=== PATIENT | male | born 1985 | race Two or more races ===

== ENCOUNTER 2018-02-02 19:26 | Emergency (ER) | payer OTHER | END 2018-02-02 21:45 | disposition home or self-care (01) | LOC: ER 19:26 | DX: H60.331 Swimmer's ear, right ear (principal) | CPT/HCPCS: 99283 ==

== ENCOUNTER 2021-06-13 18:48 | Emergency (ER) | payer SELFPAY ==
[~2021-06-13] VITALS: Ht 177.8 cm; Wt 100.0 kg
[~2021-06-13 18:48] MED LIST: CIPR500T94 PO; HYDR-3164 PO; METR500T PO; OFLO5DRO7 RIGHTEYE; ONDA4TAB10 SL
[2021-06-13] MEDS ORDERED: ONDANSETRON ODT 4 MG TAB.RAPDIS. PO ONE (20:00)
[2021-06-13] MEDS ORDERED: ONDANSETRON ODT 4 MG TAB.RAPDIS. ONE (20:09)
[2021-06-13 20:20] VITALS: BP 124/60
--- NOTE | 2021-06-13 21:06 | PHYS DOC ---
Past Medical History Past Medical History: No Pertinent History Past Surgical History: No Surgical History Smoking Status: Current Some Day Smoker Alcohol Use: Heavy Drug Use: None General Adult EDM: Chief Complaint: OVERDOSE HPI: HPI: Patient is a 35 year old male with history of polysubstance abuse who presents with EMS after being found unresponsive and having pinpoint pupils. Initially had assisted ventilations and was given 0.2 mg of Narcan with an increase level of consciousness. Patient denies opiate use today, but does endorse a large amount of alcohol intake and marijuana use. States that he felt okay prior, but was upset about a car breakdown and so was "drinking to pass out." Review of Systems: Review of Systems: Constitutional: Denies fever or chills. [] Eyes: Denies change in visual acuity. [] HENT: Denies nasal congestion or sore throat. [] Respiratory: Denies cough or shortness of breath. [] Cardiovascular: Denies chest pain or edema. [] GI: Denies abdominal pain, nausea, vomiting, bloody stools or diarrhea. [] : Denies dysuria. [] Musculoskeletal: Denies back pain or joint pain. [] Integument: Denies rash. [] Neurologic: Denies headache, focal weakness or sensory changes. [] Endocrine: Denies polyuria or polydipsia. [] Lymphatic: Denies swollen glands. [] Psychiatric: Denies depression or anxiety. [] Heart Score: C/O Chest Pain: No Risk Factors: Risk Factors: DM, Current or recent (<one month) smoker, HTN, HLP, family history of CAD, obesity. Risk Scores: Score 0 - 3: 2.5% MACE over next 6 weeks - Discharge Home Score 4 - 6: 20.3% MACE over next 6 weeks - Admit for Clinical Observation Score 7 - 10: 72.7% MACE over next 6 weeks - Early Invasive Strategies Current Medications: Current Medications Medications (Trade) Dose Ordered Sig/Pasha Start Time Stop Time Status Last Admin Dose Admin Ondansetron HCl (Zofran Odt) 4 mg 1X ONCE 06/13/21 20:00 06/13/21 20:17 DC 06/13/21 20:12 4 MG Allergies: Allergies: Allergies Coded Allergies Type Severity Reaction Last Updated Verified No Known Drug Allergies 04/09/16 No Physical Exam: PE: Constitutional: Well-developed, well-nourished HENT: Normocephalic, atraumatic, pupils 3-4 mm, equal, reactive. Perioral cyanosis noted. Neck: Normal range of motion, no tenderness, supple, no stridor. [] Cardiovascular: Tachycardic, regular. Lungs & Thorax: Bilateral crackles in all lung hendrix. Initially satting 70% on room air. Recovered with 6 L/min nasal cannula to 95%. No chest wall tenderness. Abdomen: Bowel sounds normal, soft, no tenderness, no masses, no pulsatile masses. [] Skin: Warm, dry, no erythema, no rash. [] Back: No tenderness, no CVA tenderness. [] Extremities: No tenderness, no cyanosis, no clubbing, ROM intact, no edema. [] Neurologic: Alert and oriented X 3, normal motor function, normal sensory function, no focal deficits noted. [] No slurred speech. Was able to have an in-depth conversation, and discussed risks and benefits. Was able to repeat information back. Psychologic: Affect normal, judgement normal, mood normal. [] Current Patient Data: Vital Signs: Vital Signs Date Time Temp Pulse Resp B/P (MAP) Pulse Ox O2 Delivery O2 Flow Rate FiO2 06/13/21 18:50 125 16 162/88 (112) 91 Room Air EKG: EKG: Sinus rhythm. Rate 136. Left axis deviation. No ST elevations or depressions. QTc 421. MI 142. [] Radiology/Procedures: Radiology/Procedures: [] Course & Med Decision Making: Course & Med Decision Making Pertinent Labs and Imaging studies reviewed. (See chart for details) Patient is a 35-year-old male who admits to polysubstance abuse who presents with EMS after receiving 0.2 mg of Narcan for unresponsiveness and pinpoint pupils. Per EMS responded well to Narcan. Patient denies any opiate use, but does endorse alcohol use and THC use today. On arrival is tachycardic to 130s, and hypoxic to 70% on room air. Recovered with 6 L/min nasal cannula. Bilateral crackles on auscultatory exam Concern for Covid, pulmonary edema, aspiration pneumonitis etc. Patient is alert, oriented to person, place, time, without slurred speech and is requesting no medical testing or interventions. I relayed to him the risks of untreated hypoxia including multiorgan failure including heart, brain, kidneys, and potentially . He is able to repeat back the risks, and is willing to stay for a period of observation with oxygen. After 2 hours in the emergency department he does not have rebound narcotic effect. His auscultatory exam cleared, and his O2 sats have been mostly in the low 90s without supplemental oxygen. He did have a few brief resolving episodes of hypo kaylen to as low as 83%. I continue to recommend a medical work-up for the same, and he continued to refuse, and eventually request an AMA discharge. I do feel that he does have capacity to make that decision at this time. [address] Disclaimer: Dragon Disclaimer: This electronic medical record was generated, in whole or in part, using a voice recognition dictation system. Departure Departure Impression: Primary Impression: Drug abuse Additional Impression: Acute respiratory failure with hypoxia Disposition: LEFT AGAINST MEDICAL ADVICE Condition: GUARDED Referrals: NO PCP (PCP) KIRSTEN TEJEDA MD Jun 13, 2021 21:06
== END 2021-06-13 21:06 | disposition left against medical advice (07) ==
LOC: ER 18:48
DX: F19.10 Other psychoactive substance abuse, uncomplicated (principal); F17.200 Nicotine dependence, unspecified, uncomplicated; F10.20 Alcohol dependence, uncomplicated; Y90.9 Presence of alcohol in blood, level not specified
CPT/HCPCS: 99285-25